=== PATIENT | male | born 1940 | race Caucasian/White ===

== ENCOUNTER 2022-04-12 10:20 | Outpatient (CLI) | payer OTHER, SELFPAY ==
[2022-04-12 09:49] LABS: Chloride* 106 mmol/L (96-114); Sodium* 140 mmol/L (135-149)
[2022-04-12 09:52] LABS: Blood Urea Nitrogen* 23 mg/dL (7-30); Carbon Dioxide* 24 mmol/L (20-32); Cholesterol* 185 mg/dL (90-199); Creatinine* 1.1 mg/dL (0.5-1.5); Estimated Glomerular Filt Rate 68 ml/min
[2022-04-12 09:53] LABS: Calcium* 9.1 mg/dL (8.4-10.6); Glucose* 93 mg/dL (60-115); HDL Cholesterol* 47 mg/dL (>=40); LDL Cholesterol Calculated 101 mg/dL (<100); Triglycerides* 184 mg/dL (40-149); Uric Acid* 5.9 mg/dL (2.2-8.4)
[2022-04-12 10:03] LABS: Creatinine Urine 226.5 mg/dL
[2022-04-12 10:07] LABS: Microalbumin Creatinine Ratio 0 mg/g (0-30); Microalbumin Urine 1 mg/dL
[2022-04-12 10:24] LABS: PSA Screen* 1.95 ng/mL (0.10-4.00)
== END 2022-04-12 10:21 | disposition home or self-care (01) ==
PROVIDERS: PCP Internal Medicine; Visit Provider Internal Medicine
DX: E78.5 Hyperlipidemia, unspecified (principal); N40.0 Benign prostatic hyperplasia without lower urinary tract symptoms; M10.9 Gout, unspecified; Z52.4 Kidney donor
CPT/HCPCS: 80048; 80061; 82043; 82570; 84153; 84550

== ENCOUNTER 2022-08-12 09:10 | Outpatient (CLI) | payer OTHER, SELFPAY | END 2022-08-12 09:11 | disposition home or self-care (01) | PROVIDERS: PCP Internal Medicine; Visit Provider Internal Medicine | DX: Z12.11 Encounter for screening for malignant neoplasm of colon (principal); K63.5 Polyp of colon | CPT/HCPCS: 45380; 88305; J2250; J3010 ==

== ENCOUNTER 2022-09-02 15:56 | Outpatient (CLI) | payer OTHER, SELFPAY | END 2022-09-02 15:57 | disposition home or self-care (01) | PROVIDERS: PCP Internal Medicine; Referring Provider Internal Medicine; Visit Provider Nurse Practitioner Family | DX: R30.0 Dysuria (principal); N39.0 Urinary tract infection, site not specified | CPT/HCPCS: 87086; 87186 ==

== ENCOUNTER 2023-05-03 08:13 | Outpatient (CLI) | payer OTHER, SELFPAY | END 2023-05-03 08:14 | disposition home or self-care (01) | LOC: NFLDREF 05-04 11:45 | PROVIDERS: PCP Internal Medicine; Referring Provider Internal Medicine; Visit Provider Internal Medicine | DX: E78.5 Hyperlipidemia, unspecified (principal); N40.0 Benign prostatic hyperplasia without lower urinary tract symptoms; M10.9 Gout, unspecified; Z90.5 Acquired absence of kidney | CPT/HCPCS: 80048; 80061; 82043; 82570; 84153; 84550; 87086 ==

== ENCOUNTER 2024-04-11 07:56 | Outpatient (CLI) | payer OTHER, SELFPAY | END 2024-04-11 07:57 | disposition home or self-care (01) | LOC: NFLDREF 12:14 | PROVIDERS: PCP Internal Medicine; Referring Provider Internal Medicine; Visit Provider Internal Medicine | DX: Z00.00 Encounter for general adult medical examination without abnormal findings (principal); M10.9 Gout, unspecified; N40.0 Benign prostatic hyperplasia without lower urinary tract symptoms; Z12.5 Encounter for screening for malignant neoplasm of prostate; Z13.6 Encounter for screening for cardiovascular disorders; Z90.5 Acquired absence of kidney | CPT/HCPCS: 80048; 80061; 82043; 82570; 84550; G0103 ==

== ENCOUNTER 2025-04-25 07:55 | Outpatient (CLI) | payer OTHER, SELFPAY | END 2025-04-25 07:56 | disposition home or self-care (01) | LOC: NFLDREF 04-30 17:47 | PROVIDERS: PCP Internal Medicine; Referring Provider Internal Medicine; Visit Provider Internal Medicine | DX: N40.0 Benign prostatic hyperplasia without lower urinary tract symptoms (principal); E78.5 Hyperlipidemia, unspecified; Z13.9 Encounter for screening, unspecified | CPT/HCPCS: 80048; 80061; 82043; 82570; 84550; G0103 ==